=== PATIENT | female | born 1960 | race Caucasian/White ===

== ENCOUNTER 2019-01-18 08:40 | Emergency (ER) | payer MEDICAID ==
[~2019-01-18] VITALS: Ht 152.4 cm; Wt 61.6 kg
[2019-01-18 11:08] VITALS: BP 132/80
== END 2019-01-18 11:15 | disposition home or self-care (01) ==
LOC: ER 08:41
DX: S52.501A Unspecified fracture of the lower end of right radius, initial encounter for closed fracture (principal); Z88.2 Allergy status to sulfonamides; W18.39XA Other fall on same level, initial encounter; Y93.89 Activity, other specified; Y92.89 Other specified places as the place of occurrence of the external cause; Y99.8 Other external cause status
CPT/HCPCS: 99284

== ENCOUNTER 2024-12-05 16:25 | Emergency (ER) | payer MEDICAID ==
[~2024-12-05] VITALS: Ht 149.9 cm; Wt 50.0 kg
[2024-12-05 17:22] VITALS: BP 197/111; PULSE 108; RESP 16; TEMP 97.8; O2SAT 97
== END 2024-12-05 20:10 | disposition left against medical advice (07) ==
LOC: ER 16:26
DX: S90.922A Unspecified superficial injury of left foot, initial encounter (principal); Z53.21 Procedure and treatment not carried out due to patient leaving prior to being seen by health care provider; Z88.2 Allergy status to sulfonamides; X58.XXXA Exposure to other specified factors, initial encounter; Y93.89 Activity, other specified; Y92.89 Other specified places as the place of occurrence of the external cause; Y99.8 Other external cause status